=== PATIENT | male | born 1965 | race Asian ===

== ENCOUNTER 2019-07-23 14:05 | Inpatient (IN) | payer BC, OTHER ==
[2019-07-23 15:11] VITALS: BMI 30.9
[2019-07-23 15:58] LABS: Actual Bicarbonate (HCO3a) 26.6 mEq/L (22-28); Base Excess (BEa) 2.3 mEq/L (-2.0 to +3.0); CO2 Tension 40.1 mmHg (35.0-45.0); Calcium, Ionized 1.02 mmol/L (1.12-1.30); Carboxyhemoglobin (COHb) 1.4 gm% (0.0-3.0); Hemoglobin (Hb) 13.5 g/dL (14.0-18.0); O2 Tension (PaO2), arterial 68.2 mmHg (80.0-100.0); Potassium - ABG Lab 3.33 mmol/L (3.70-5.30); pH, Arterial 7.44 (7.35-7.45)
[2019-07-23 16:01] LABS: ALV-art Gradient 109.835 (0-20); Puncture Site RRA
[2019-07-23 16:33] LABS: CKMB 11.8 ng/mL (0-6.6)
[2019-07-23] MEDS ORDERED: hydrALAZINE 20 MG/ML VIAL SLOW IVP PRN (17:16)
[2019-07-23] MEDS ORDERED: Labetalol HCl 100 MG/20 ML VIAL SLOW IVP PRN (17:16)
[2019-07-23] MEDS ORDERED: Ondansetron ODT 4 MG TAB PO PRN (17:16)
[2019-07-23] MEDS ORDERED: Benzonatate 100 MG CAP PO PRN (17:16)
[2019-07-23] MEDS ORDERED: Acetaminophen 325 MG TAB PO PRN (17:16)
[2019-07-23] MEDS: cefTRIAXone\\ROCEPHIN 1 GM in Sodium Chloride 0.9% 100 ML IVPB SCH (17:57)
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
[2019-07-23] MEDS ORDERED: Mometasone 100 MCG/Formoterol 5 MCG 120 PUFF INHALER INH SCH (18:30)
[2019-07-23] MEDS: Azithromycin 500 MG in Sodium Chloride 0.9% 250 ML 250 ML IVPB SCH (18:42)
[2019-07-23] MEDS: Albuterol 200 PUFF (6.7GM INHALER) INH SCH (18:43)
[2019-07-23] MEDS: Mometasone 100 MCG/Formoterol 5 MCG 120 PUFF INHALER INH SCH (18:58)
[2019-07-23 19:28] LABS: Troponin I 0.146 ng/mL (< 0.028)
[2019-07-23] MEDS: Famotidine 20 MG TAB PO SCH (20:21)
[2019-07-23] MEDS: Enoxaparin Sodium 100 MG/ML SYRINGE SC SCH (20:21)
[2019-07-23 21:37] LABS: Troponin I 0.123 ng/mL (< 0.028)
[2019-07-23] MEDS ORDERED: guaiFENesin ER 600 MG TAB PO SCH (23:45)
[2019-07-24] MEDS: Albuterol 200 PUFF (6.7GM INHALER) INH SCH ×4 (01:46→17:47)
[2019-07-24 05:59] LABS: Hemoglobin 12.7 g/dL (14.0-18.0); Mean Corpuscular HGB CONC 32.1 g/dL (32.0-36.0); Mean Corpuscular Hemoglobin 29.8 pg (27.0-31.0); Mean Corpuscular Volume 92.9 fL (78.0-98.0); Mean Platelet Volume 8.3 fL (7.4-10.4); Platelet Count 286 thou/uL (130-400); RBC Distribution Width 12.8 % (11.5-14.5); Red Blood Cell (RBC) Count 4.25 mill/uL (4.70-6.10); White Blood Cell (WBC) Count 7.9 thou/uL (4.8-10.8)
[2019-07-24] MEDS: Mometasone 100 MCG/Formoterol 5 MCG 120 PUFF INHALER INH SCH ×2 (05:59→17:47)
[2019-07-24 06:16] LABS: Anion Gap 12 mmol/L (10-20); BUN (Urea Nitrogen) 24 mg/dL (8.4-25.7); CRP (Inflammatory) 11.33 mg/dL (= or < 0.5); Calc. Creatinine Clearance 129 mL/min (70-130); Calcium 7.5 mg/dL (7.8-10.44); Carbon Dioxide 29 mmol/L (22-29); Chloride 103 mmol/L (98-107); Estimated GFR-MDRD Greater than 90; Glucose 148 mg/dL (70-105); Potassium 3.4 mmol/L (3.5-5.1); Sodium 141 mmol/L (136-145)
[2019-07-24 06:23] LABS: Band 12 % (5-11); Lymphocytes 5 % (21-51); MDiff Complete? YES; Metamyelocyte 1 % (0-0); Monocytes 4 % (0-10); Neutrophil 78 % (42-75)
[2019-07-24] MEDS: Enoxaparin Sodium 100 MG/ML SYRINGE SC SCH ×2 (07:53→19:33)
[2019-07-24] MEDS: Folic Acid/Vit B Comp W-C PO SCH (07:56)
[2019-07-24] MEDS: Famotidine 20 MG TAB PO SCH ×2 (07:56→19:33)
[2019-07-24] MEDS: Aspirin 81 mg Enteric Coated Tablet PO SCH (07:56)
[2019-07-24] MEDS: Atorvastatin Calcium 40 MG TAB PO SCH (07:56)
[2019-07-24] MEDS: Ascorbic Acid 500 mg Chewable Tablet PO SCH (07:56)
[2019-07-24] MEDS: guaiFENesin ER 600 MG TAB PO SCH ×2 (07:57→19:33)
[2019-07-24] MEDS ORDERED: Prevnar 13-Val Conj/PF 0.5 ML SYRINGE IM ONE (09:00)
[2019-07-24 10:20] LABS: SARS-CoV-2 MS2 Positive; SARS-CoV-2 N Gene Positive; SARS-CoV-2 S Gene Positive; SARS-CoV-2 orf1ab Positive
--- NOTE | 2019-07-24 12:29 | PDOC.HOSPP ---
- Subjective Encounter Date: 07/24/19 Encounter Time: 12:27 Subjective: Mr. Kincaid was seen today in follow-up of COVID positive pneumonia. He does not have any complaints. He is wondering when he can go home. - Objective Vital Signs & Weight: Vital Signs (12 hours) Temp Pulse Resp BP Pulse Ox 07/24/19 08:00 97.3 F L 73 24 H 112/71 97 07/24/19 03:27 97.8 F 77 34 H 130/78 95 Weight Weight 197 lb 6.4 oz I&O: 07/23/19 07/24/19 07/25/19 06:59 06:59 06:59 Intake Total 780 Balance 780 Result Diagrams: 07/24/19 05:07 07/24/19 05:07 Hospitalist ROS - Medication Medications: Active Medications Generic Name Dose Route Start Last Admin Trade Name Freq PRN Reason Stop Dose Admin Albuterol Sulfate 2 puff 07/23/19 19:00 07/24/19 07:57 Proventil Hfa INH 2 puff [id number] MARLYS Administration Ascorbic Acid 1,000 mg 07/24/19 09:00 07/24/19 07:56 Vitamin C PO 1,000 mg DAILY MARLYS Administration Aspirin 81 mg 07/24/19 09:00 07/24/19 07:56 Ecotrin PO 81 mg DAILY MARLYS Administration Atorvastatin Calcium 40 mg 07/24/19 09:00 07/24/19 07:56 Lipitor PO 40 mg DAILY MARLYS Administration Enoxaparin Sodium 90 mg 07/23/19 21:00 07/24/19 07:53 Lovenox SC 90 mg 0900,2100 MARLYS Administration Famotidine 20 mg 07/23/19 21:00 07/24/19 07:56 Pepcid PO 20 mg BID MARLYS Administration Guaifenesin 600 mg 07/24/19 09:00 07/24/19 07:57 Mucinex PO 600 mg Q12HR MARLYS Administration Azithromycin 500 mg/ Sodium 250 mls @ 250 mls/hr 07/23/19 18:30 07/23/19 18: 42 Chloride IVPB 250 mls Q24HR MARLYS Administration Ceftriaxone Sodium 1 gm/ 100 mls @ 200 mls/hr 07/23/19 18:00 07/23/19 17:57 Sodium Chloride IVPB 100 mls Q24HR MARLYS Administration Mometasone Furoate/Formoterol Fumar 1 puff 07/23/19 18:30 07/24/19 05:59 Dulera 100 Mcg/5 Mcg Inhaler INH 1 puff BID-RT MARLYS Administration Vitamin B Complex/Vit C/Folic Acid 1 tab 07/24/19 09:00 07/24/19 07:56 Nephro-Samina Tablet PO 1 tab DAILY MARLYS Administration - Exam Eye: PERRL, anicteric sclera Heart: RRR, no murmur, no gallops, no rubs, normal peripheral pulses Respiratory: rales (+ fine rales bilaterally, no wheezing or rhonchi) Gastrointestinal: soft, non-tender, non-distended, normal bowel sounds, no palpable masses, no hepatomegaly Extremities: no cyanosis, no edema Hosp A/P (1) Pneumonia due to COVID-19 virus Code(s): U07.1 - COVID-19; J12.89 - OTHER VIRAL PNEUMONIA Status: Acute (2) Acute on chronic respiratory failure with hypoxemia Code(s): J96.21 - ACUTE AND CHRONIC RESPIRATORY FAILURE WITH HYPOXIA Status: Acute (3) Asthma Code(s): J45.909 - UNSPECIFIED ASTHMA, UNCOMPLICATED Status: Chronic (4) Hypertension Code(s): I10 - ESSENTIAL (PRIMARY) HYPERTENSION Status: Chronic - Plan * Acute on chronic respiratory failure with hypoxemia- due to COVID positive pneumonia * Continue supportive care * Will monitor inflammatory markers * Will place on anticoagulation * HTN-blood pressure is stable- and will re-start his home medications
[2019-07-24] MEDS: cefTRIAXone\\ROCEPHIN 1 GM in Sodium Chloride 0.9% 100 ML IVPB SCH (17:48)
[2019-07-24] MEDS: Azithromycin 500 MG in Sodium Chloride 0.9% 250 ML 250 ML IVPB SCH (18:35)
[2019-07-24] MEDS: Metoprolol Tartrate 100 MG TAB PO SCH (19:33)
[2019-07-24] MEDS ORDERED: Metoprolol Tartrate 50 MG TAB PO SCH (21:00)
[2019-07-25] MEDS: Albuterol 200 PUFF (6.7GM INHALER) INH SCH ×4 (00:32→21:05)
[2019-07-25] MEDS: Mometasone 100 MCG/Formoterol 5 MCG 120 PUFF INHALER INH SCH ×2 (06:19→18:09)
[2019-07-25] MEDS: Ascorbic Acid 500 mg Chewable Tablet PO SCH (08:49)
[2019-07-25] MEDS: Folic Acid/Vit B Comp W-C PO SCH (08:50)
[2019-07-25] MEDS: Famotidine 20 MG TAB PO SCH ×2 (08:50→21:06)
[2019-07-25] MEDS: Atorvastatin Calcium 40 MG TAB PO SCH (08:50)
[2019-07-25] MEDS: Aspirin 81 mg Enteric Coated Tablet PO SCH (08:50)
[2019-07-25] MEDS: Enoxaparin Sodium 100 MG/ML SYRINGE SC SCH ×2 (08:50→21:06)
[2019-07-25] MEDS: Metoprolol Tartrate 50 MG TAB PO SCH (08:51)
[2019-07-25] MEDS: guaiFENesin ER 600 MG TAB PO SCH ×2 (08:51→21:06)
[2019-07-25] MEDS: Montelukast Sodium 10 mg Tablet PO SCH (08:51)
[2019-07-25] MEDS: Hydrochlorothiazide 25 MG TAB PO SCH (08:51)
[2019-07-25] MEDS: Valsartan 80 MG TAB PO SCH (08:51)
[2019-07-25] MEDS ORDERED: Metoprolol Tartrate 50 MG TAB PO SCH (09:00)
[2019-07-25] MEDS ORDERED: Non-Formulary Item 1 EACH (Valsartan/Hydrochlorothiazide [Valsartan-Hctz 160-25 Mg Tab] 1 PO SCH (09:00)
--- NOTE | 2019-07-25 12:42 | PDOC.HOSPP ---
- Subjective Encounter Date: 07/25/19 Encounter Time: 12:39 Subjective: Mr. Kincaid was seen today in follow-up of COVID pneumonia. He does not have any complaints. His nurse notes he has high oxygen requirements, and that he desaturates to 70% when the oxygen is removed. - Objective Vital Signs & Weight: Vital Signs (12 hours) Temp Pulse Resp BP Pulse Ox 07/25/19 12:00 100.4 F H 81 22 H 128/73 93 L 07/25/19 03:55 98.6 F 77 26 H 119/62 94 L Weight Admit Weight 197 lb 6.4 oz Weight 197 lb 6.4 oz I&O: 07/24/19 07/25/19 07/26/19 06:59 06:59 06:59 Intake Total 780 1838 Output Total 600 Balance 780 1238 Result Diagrams: 07/24/19 05:07 07/24/19 05:07 Hospitalist ROS - Medication Medications: Active Medications Generic Name Dose Route Start Last Admin Trade Name Freq PRN Reason Stop Dose Admin Albuterol Sulfate 2 puff 07/23/19 19:00 07/25/19 06:19 Proventil Hfa INH 2 puff [id number] MARLYS Administration Ascorbic Acid 1,000 mg 07/24/19 09:00 07/25/19 08:49 Vitamin C PO 1,000 mg DAILY MARLYS Administration Aspirin 81 mg 07/24/19 09:00 07/25/19 08:50 Ecotrin PO 81 mg DAILY MARLYS Administration Atorvastatin Calcium 40 mg 07/24/19 09:00 07/25/19 08:50 Lipitor PO 40 mg DAILY MARLYS Administration Enoxaparin Sodium 90 mg 07/23/19 21:00 07/25/19 08:50 Lovenox SC 90 mg 0900,2100 MARLYS Administration Famotidine 20 mg 07/23/19 21:00 07/25/19 08:50 Pepcid PO 20 mg BID MARLYS Administration Guaifenesin 600 mg 07/24/19 09:00 07/25/19 08:51 Mucinex PO 600 mg Q12HR MARLYS Administration Hydrochlorothiazide 25 mg 07/25/19 09:00 07/25/19 08:51 Hydrochlorothiazide PO 25 mg DAILY MARLYS Administration Azithromycin 500 mg/ Sodium 250 mls @ 250 mls/hr 07/23/19 18:30 07/24/19 18: 35 Chloride IVPB 250 mls Q24HR MARLYS Administration Ceftriaxone Sodium 1 gm/ 100 mls @ 200 mls/hr 07/23/19 18:00 07/24/19 17:48 Sodium Chloride IVPB 100 mls Q24HR MARLYS Administration Metoprolol Tartrate 100 mg 07/24/19 21:00 07/24/19 19:33 Lopressor PO 100 mg HS MARLYS Administration Metoprolol Tartrate 50 mg 07/25/19 09:00 07/25/19 08:51 Lopressor PO 50 mg QAM MARLYS Administration Mometasone Furoate/Formoterol Fumar 1 puff 07/23/19 18:30 07/25/19 06:19 Dulera 100 Mcg/5 Mcg Inhaler INH 1 puff BID-RT MARLYS Administration Montelukast Sodium 10 mg 07/25/19 09:00 07/25/19 08:51 Singulair PO 10 mg DAILY MARLYS Administration Sodium Chloride 10 ml 07/24/19 21:00 07/25/19 08:52 Flush - Normal Saline IVF 10 ml Q12HR MARLYS Administration Valsartan 160 mg 07/25/19 09:00 07/25/19 08:51 Diovan PO 160 mg DAILY MARLYS Administration Vitamin B Complex/Vit C/Folic Acid 1 tab 07/24/19 09:00 07/25/19 08:50 Nephro-Samina Tablet PO 1 tab DAILY MARLYS Administration - Exam Eye: PERRL, anicteric sclera Heart: RRR, no murmur, no gallops, no rubs, normal peripheral pulses Respiratory: no wheezes, rales (throughout most of his lung flores, bilaterally) Gastrointestinal: soft, non-tender, non-distended, normal bowel sounds, no palpable masses, no hepatomegaly Extremities: no cyanosis, no edema Hosp A/P (1) Pneumonia due to COVID-19 virus Code(s): U07.1 - COVID-19; J12.89 - OTHER VIRAL PNEUMONIA Status: Acute (2) Acute on chronic respiratory failure with hypoxemia Code(s): J96.21 - ACUTE AND CHRONIC RESPIRATORY FAILURE WITH HYPOXIA Status: Acute (3) Asthma Code(s): J45.909 - UNSPECIFIED ASTHMA, UNCOMPLICATED Status: Chronic (4) Hypertension Code(s): I10 - ESSENTIAL (PRIMARY) HYPERTENSION Status: Chronic - Plan * Acute on chronic respiratory failure with hypoxemia- due to COVID positive pneumonia * Will continue to monitor in the hospital * His troponins are trending down * Continue Lovenox * HTN-blood pressure is stable- continue Losartan and Metoprolol
[2019-07-25] MEDS: cefTRIAXone\\ROCEPHIN 1 GM in Sodium Chloride 0.9% 100 ML IVPB SCH (17:45)
[2019-07-25] MEDS: Azithromycin 500 MG in Sodium Chloride 0.9% 250 ML 250 ML IVPB SCH (18:09)
[2019-07-25] MEDS: Metoprolol Tartrate 100 MG TAB PO SCH (21:06)
[2019-07-26] MEDS: Albuterol 200 PUFF (6.7GM INHALER) INH SCH ×4 (00:39→19:02)
[2019-07-26 01:10] LABS: Actual Bicarbonate (HCO3a) 31.2 mEq/L (22-28); Base Excess (BEa) 6.5 mEq/L (-2.0 to +3.0); CO2 Tension 45.1 mmHg (35.0-45.0); Calcium, Ionized 1.07 mmol/L (1.12-1.30); Carboxyhemoglobin (COHb) 0.9 gm% (0.0-3.0); Hemoglobin (Hb) 13.2 g/dL (14.0-18.0); O2 Tension (PaO2), arterial 80.1 mmHg (80.0-100.0); Potassium - ABG Lab 3.34 mmol/L (3.70-5.30); pH, Arterial 7.46 (7.35-7.45)
[2019-07-26 01:11] LABS: Puncture Site L RADIAL
[2019-07-26 01:12] LABS: ALV-art Gradient 148.725 (0-20)
[2019-07-26] MEDS: Mometasone 100 MCG/Formoterol 5 MCG 120 PUFF INHALER INH SCH ×2 (06:07→19:02)
--- NOTE | 2019-07-26 07:54 | RAD ---
EXAM: CHEST ONE VIEW HISTORY: Chronic cough COMPARISON: 11/27/2015. FINDINGS: Cardiac silhouette is magnified by projection but does appear mildly enlarged interstitial and alveol ar opacities are seen within the lungs bilaterally and diffusely with more confluent areas of consolidation seen at the lateral aspect of the upper lung zones. Findings are suggestive of bilatera l pneumonia and possibly atypical pneumonia. Viral pneumonitis in the correct clinical scenario is a possibility. Mild degenerative changes are seen in the spine. IMPRESSION: Bilateral interstitial and alveolar opacities with more confluent opacity/consolidation in the latera l aspect upper lung zones. Findings may be related to multifocal pneumonia and possibly atypical pneumonia. Viral pneumonitis in the correct clinical scenario is also a possibility. Follow-up to com plete resolution is recommended.
[2019-07-26] MEDS: Atorvastatin Calcium 40 MG TAB PO SCH (08:04)
[2019-07-26] MEDS: Enoxaparin Sodium 100 MG/ML SYRINGE SC SCH ×2 (08:04→20:45)
[2019-07-26] MEDS: Ascorbic Acid 500 mg Chewable Tablet PO SCH (08:04)
[2019-07-26] MEDS: Aspirin 81 mg Enteric Coated Tablet PO SCH (08:04)
[2019-07-26] MEDS: Folic Acid/Vit B Comp W-C PO SCH (08:05)
[2019-07-26] MEDS: Famotidine 20 MG TAB PO SCH ×2 (08:05→20:47)
[2019-07-26] MEDS: Metoprolol Tartrate 50 MG TAB PO SCH (08:05)
[2019-07-26] MEDS: Hydrochlorothiazide 25 MG TAB PO SCH (08:05)
[2019-07-26] MEDS: Montelukast Sodium 10 mg Tablet PO SCH (08:05)
[2019-07-26] MEDS: guaiFENesin ER 600 MG TAB PO SCH ×2 (08:05→20:47)
[2019-07-26] MEDS: Valsartan 80 MG TAB PO SCH (08:06)
[2019-07-26 12:14] LABS: ALT (SGPT) 64 U/L (8-55); AST (SGOT) 59 U/L (5-34); Albumin 3.1 g/dL (3.5-5.0); Alkaline Phosphatase 68 U/L (40-110); Bilirubin, Direct 0.4 mg/dL (0.1-0.3); Bilirubin, Total 0.8 mg/dL (0.2-1.2); Protein, Total 7.4 g/dL (6.0-8.3)
[2019-07-26 12:19] LABS: Calc. Creatinine Clearance 145 mL/min (70-130); Estimated GFR-MDRD Greater than 90
[2019-07-26] MEDS ORDERED: Non-Formulary Item 1 EACH in Sodium Chloride 0.9% 250 ML 210 ML IV SCH ×2 (12:45→14:00)
--- NOTE | 2019-07-26 12:45 | PDOC.HOSPP ---
- Subjective Encounter Date: 07/26/19 Encounter Time: 12:44 Subjective: Mr. Kincaid was seen today in follow-up of COVID pneumonia. He had some difficulty with increase work of breathing last night. He says he feels ok now, but he appears more diaphoretic and slightly tachypneic. - Objective Vital Signs & Weight: Vital Signs (12 hours) Temp Pulse Resp BP Pulse Ox 07/26/19 11:50 98.9 F 70 36 H 134/74 96 07/26/19 08:10 98.1 F 79 36 H 139/79 93 L 07/26/19 04:24 98.9 F 62 28 H 134/80 95 Weight Admit Weight 197 lb 6.4 oz Weight 193 lb 12.8 oz I&O: 07/25/19 07/26/19 07/27/19 06:59 06:59 06:59 Intake Total 1838 1445 480 Output Total 600 600 400 Balance 1238 845 80 Result Diagrams: 07/24/19 05:07 07/26/19 11:39 Hospitalist ROS - Medication Medications: Active Medications Generic Name Dose Route Start Last Admin Trade Name Freq PRN Reason Stop Dose Admin Acetaminophen 650 mg 07/23/19 17:16 07/26/19 00:42 Tylenol PO 650 mg Q4H PRN Administration Headache/Fever/Mild Pain (1-3) Albuterol Sulfate 2 puff 07/23/19 19:00 07/26/19 06:06 Proventil Hfa INH 2 puff [id number] MARLYS Administration Ascorbic Acid 1,000 mg 07/24/19 09:00 07/26/19 08:04 Vitamin C PO 1,000 mg DAILY MARLYS Administration Aspirin 81 mg 07/24/19 09:00 07/26/19 08:04 Ecotrin PO 81 mg DAILY MARLYS Administration Atorvastatin Calcium 40 mg 07/24/19 09:00 07/26/19 08:04 Lipitor PO 40 mg DAILY MARLYS Administration Enoxaparin Sodium 90 mg 07/23/19 21:00 07/26/19 08:04 Lovenox SC 90 mg 0900,2100 MARLYS Administration Famotidine 20 mg 07/23/19 21:00 07/26/19 08:05 Pepcid PO 20 mg BID MARLYS Administration Guaifenesin 600 mg 07/24/19 09:00 07/26/19 08:05 Mucinex PO 600 mg Q12HR MARLYS Administration Hydrochlorothiazide 25 mg 07/25/19 09:00 07/26/19 08:05 Hydrochlorothiazide PO 25 mg DAILY MARLYS Administration Metoprolol Tartrate 100 mg 07/24/19 21:00 07/25/19 21:06 Lopressor PO 100 mg HS MARLYS Administration Metoprolol Tartrate 50 mg 07/25/19 09:00 07/26/19 08:05 Lopressor PO 50 mg QAM MARLYS Administration Mometasone Furoate/Formoterol Fumar 1 puff 07/23/19 18:30 07/26/19 06:07 Dulera 100 Mcg/5 Mcg Inhaler INH 1 puff BID-RT MARLYS Administration Montelukast Sodium 10 mg 07/25/19 09:00 07/26/19 08:05 Singulair PO 10 mg DAILY MARLYS Administration Sodium Chloride 10 ml 07/24/19 21:00 07/26/19 08:05 Flush - Normal Saline IVF 10 ml Q12HR MARLYS Administration Sodium Chloride 10 ml 07/24/19 12:37 07/25/19 17:45 Flush - Normal Saline IVF 10 ml PRN PRN Administration Saline Flush Valsartan 160 mg 07/25/19 09:00 07/26/19 08:06 Diovan PO 160 mg DAILY MARLYS Administration Vitamin B Complex/Vit C/Folic Acid 1 tab 07/24/19 09:00 07/26/19 08:05 Nephro-Samina Tablet PO 1 tab DAILY MARLYS Administration - Exam Eye: PERRL, anicteric sclera Heart: RRR, no murmur, no gallops, no rubs, normal peripheral pulses Respiratory: rales (rales throughout, and occasional rhonchi) Gastrointestinal: soft, non-tender, non-distended, normal bowel sounds, no palpable masses, no hepatomegaly Extremities: no cyanosis, no edema Hosp A/P (1) Pneumonia due to COVID-19 virus Code(s): U07.1 - COVID-19; J12.89 - OTHER VIRAL PNEUMONIA Status: Acute (2) Acute on chronic respiratory failure with hypoxemia Code(s): J96.21 - ACUTE AND CHRONIC RESPIRATORY FAILURE WITH HYPOXIA Status: Acute (3) Asthma Code(s): J45.909 - UNSPECIFIED ASTHMA, UNCOMPLICATED Status: Chronic (4) Hypertension Code(s): I10 - ESSENTIAL (PRIMARY) HYPERTENSION Status: Chronic - Plan * Acute on chronic respiratory failure with hypoxemia- due to COVID positive pneumonia * He has had some increase work of breathing. Agree with ID consult * He is being considered for Remdesivir protocol, lab work, and work-up is in progress * Continue to monitor inflammatory markers * Continue Lovenox * HTN-blood pressure is stable- continue Losartan and Metoprolol
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
[2019-07-26] MEDS: Metoprolol Tartrate 100 MG TAB PO SCH (20:47)
[2019-07-27] MEDS: Albuterol 200 PUFF (6.7GM INHALER) INH SCH ×4 (01:19→17:50)
[2019-07-27 05:09] LABS: Hemoglobin 13.2 g/dL (14.0-18.0); Platelet Count 377 thou/uL (130-400)
[2019-07-27 05:31] LABS: Calc. Creatinine Clearance 157 mL/min (70-130); Estimated GFR-MDRD Greater than 90
[2019-07-27 05:35] LABS: ALT (SGPT) 66 U/L (8-55); AST (SGOT) 54 U/L (5-34); Albumin 2.9 g/dL (3.5-5.0); Alkaline Phosphatase 64 U/L (40-110); Bilirubin, Direct 0.5 mg/dL (0.1-0.3); Bilirubin, Total 0.8 mg/dL (0.2-1.2); Protein, Total 6.9 g/dL (6.0-8.3)
[2019-07-27] MEDS: Mometasone 100 MCG/Formoterol 5 MCG 120 PUFF INHALER INH SCH ×2 (05:48→17:48)
[2019-07-27] MEDS: Aspirin 81 mg Enteric Coated Tablet PO SCH (08:20)
[2019-07-27] MEDS: Ascorbic Acid 500 mg Chewable Tablet PO SCH (08:20)
[2019-07-27] MEDS: guaiFENesin ER 600 MG TAB PO SCH ×2 (08:21→19:53)
[2019-07-27] MEDS: Enoxaparin Sodium 100 MG/ML SYRINGE SC SCH ×2 (08:21→20:18)
[2019-07-27] MEDS: Famotidine 20 MG TAB PO SCH ×2 (08:21→19:53)
[2019-07-27] MEDS: Atorvastatin Calcium 40 MG TAB PO SCH (08:21)
[2019-07-27] MEDS: Folic Acid/Vit B Comp W-C PO SCH (08:21)
[2019-07-27] MEDS: Valsartan 80 MG TAB PO SCH (08:22)
[2019-07-27] MEDS: Metoprolol Tartrate 50 MG TAB PO SCH (08:22)
[2019-07-27] MEDS: Montelukast Sodium 10 mg Tablet PO SCH (08:22)
[2019-07-27] MEDS: Hydrochlorothiazide 25 MG TAB PO SCH (08:22)
--- NOTE | 2019-07-27 11:25 | PDOC.HOSPP ---
- Subjective Encounter Date: 07/27/19 Encounter Time: 11:24 Subjective: Mr. Kincaid was seen today in follow-up of COVID positive pneumonia. He says he is breathing ok. He denies chest pain or shortness of breath. He denies any leg pain or swelling. - Objective Vital Signs & Weight: Vital Signs (12 hours) Temp Pulse Resp BP BP Pulse Ox 07/27/19 08:30 98.2 F 77 20 128/72 96 07/27/19 05:50 99.1 F 64 27 H 131/76 93 L 07/27/19 00:50 99.3 F 63 28 H 124/68 96 Weight Admit Weight 197 lb 6.4 oz Weight 193 lb 12.8 oz I&O: 07/26/19 07/27/19 07/28/19 06:59 06:59 06:59 Intake Total 1445 720 Output Total 600 1300 Balance 845 -580 Result Diagrams: 07/27/19 04:41 07/27/19 04:42 Hospitalist ROS - Medication Medications: Active Medications Generic Name Dose Route Start Last Admin Trade Name Freq PRN Reason Stop Dose Admin Acetaminophen 650 mg 07/23/19 17:16 07/26/19 00:42 Tylenol PO 650 mg Q4H PRN Administration Headache/Fever/Mild Pain (1-3) Albuterol Sulfate 2 puff 07/23/19 19:00 07/27/19 08:20 Proventil Hfa INH 2 puff [id number] MARLYS Administration Ascorbic Acid 1,000 mg 07/24/19 09:00 07/27/19 08:20 Vitamin C PO 1,000 mg DAILY MARLYS Administration Aspirin 81 mg 07/24/19 09:00 07/27/19 08:20 Ecotrin PO 81 mg DAILY MARLYS Administration Atorvastatin Calcium 40 mg 07/24/19 09:00 07/27/19 08:21 Lipitor PO 40 mg DAILY MARLYS Administration Enoxaparin Sodium 90 mg 07/23/19 21:00 07/27/19 08:21 Lovenox SC 90 mg 0900,2100 MARLYS Administration Famotidine 20 mg 07/23/19 21:00 07/27/19 08:21 Pepcid PO 20 mg BID MARLYS Administration Guaifenesin 600 mg 07/24/19 09:00 07/27/19 08:21 Mucinex PO 600 mg Q12HR MARLYS Administration Hydrochlorothiazide 25 mg 07/25/19 09:00 07/27/19 08:22 Hydrochlorothiazide PO 25 mg DAILY MARLYS Administration Metoprolol Tartrate 100 mg 07/24/19 21:00 07/26/19 20:47 Lopressor PO 100 mg HS MARLYS Administration Metoprolol Tartrate 50 mg 07/25/19 09:00 07/27/19 08:22 Lopressor PO 50 mg QAM MARLYS Administration Mometasone Furoate/Formoterol Fumar 1 puff 07/23/19 18:30 07/27/19 05:48 Dulera 100 Mcg/5 Mcg Inhaler INH 1 puff BID-RT MARLYS Administration Montelukast Sodium 10 mg 07/25/19 09:00 07/27/19 08:22 Singulair PO 10 mg DAILY MARLYS Administration Sodium Chloride 10 ml 07/24/19 21:00 07/27/19 08:23 Flush - Normal Saline IVF 10 ml Q12HR MARLYS Administration Sodium Chloride 10 ml 07/24/19 12:37 07/25/19 17:45 Flush - Normal Saline IVF 10 ml PRN PRN Administration Saline Flush Valsartan 160 mg 07/25/19 09:00 07/27/19 08:22 Diovan PO 160 mg DAILY MARLYS Administration Vitamin B Complex/Vit C/Folic Acid 1 tab 07/24/19 09:00 07/27/19 08:21 Nephro-Samina Tablet PO 1 tab DAILY MARLYS Administration - Exam Eye: PERRL, anicteric sclera Heart: RRR, no murmur, no gallops, no rubs, normal peripheral pulses Gastrointestinal: soft, non-tender, non-distended, normal bowel sounds Extremities: no cyanosis, no edema Hosp A/P (1) Pneumonia due to COVID-19 virus Code(s): U07.1 - COVID-19; J12.89 - OTHER VIRAL PNEUMONIA Status: Acute (2) Acute on chronic respiratory failure with hypoxemia Code(s): J96.21 - ACUTE AND CHRONIC RESPIRATORY FAILURE WITH HYPOXIA Status: Acute (3) Asthma Code(s): J45.909 - UNSPECIFIED ASTHMA, UNCOMPLICATED Status: Chronic (4) Hypertension Code(s): I10 - ESSENTIAL (PRIMARY) HYPERTENSION Status: Chronic - Plan * Acute on chronic respiratory failure with hypoxemia- due to COVID positive pneumonia * He has been started on Remdesivir * Continue to monitor inflammatory markers * Continue Lovenox * HTN-blood pressure is stable- continue Losartan and Metoprolol
[2019-07-27] MEDS: Non-Formulary Item 1 EACH in Sodium Chloride 0.9% 250 ML 230 ML IV SCH (12:36)
--- NOTE | 2019-07-27 19:13 | PRG ---
DATE OF SERVICE: 07/27/2019 SUBJECTIVE: The patient is feeling better. He is not dyspneic. Less cough. No abdominal pain or diarrhea. No anosmia. OBJECTIVE: VITAL SIGNS: It looks like his temperature curve is normalizing. Other vital signs are normal. O2 saturations are 97 on 5 L of nasal cannula. LUNGS: Clear. HEART: S1 and S2, regular rate. ABDOMEN: Soft. Not distended. LABORATORY DATA: Hemoglobin 13, platelets 377. The direct bilirubin is 0.5. AST and ALT are about the same as previously. Albumin 2.9. Ferritin is a little bit higher at 461, and CRP is lower than the last one at 14. ASSESSMENT AND DISCUSSION: COVID pneumonia, moderately severe, on remdesivir. Continue monitoring ferritin, CRP, and D-dimer every other day and hopefully will be able to discharge soon. Criteria for discharge will be lack of requirement for O2 supplementation and continuing improvement of inflammatory markers and D-dimer. Job ID: [id number]
[2019-07-27] MEDS: Metoprolol Tartrate 100 MG TAB PO SCH (19:53)
[2019-07-28] MEDS: Albuterol 200 PUFF (6.7GM INHALER) INH SCH ×4 (01:55→19:44)
[2019-07-28 05:30] LABS: ALT (SGPT) 70 U/L (8-55); AST (SGOT) 53 U/L (5-34); Alkaline Phosphatase 68 U/L (40-110); Bilirubin, Direct 0.4 mg/dL (0.1-0.3); Bilirubin, Total 0.5 mg/dL (0.2-1.2); Protein, Total 7.2 g/dL (6.0-8.3)
[2019-07-28] MEDS: Mometasone 100 MCG/Formoterol 5 MCG 120 PUFF INHALER INH SCH ×2 (06:04→17:35)
[2019-07-28] MEDS: Enoxaparin Sodium 100 MG/ML SYRINGE SC SCH ×2 (07:59→19:43)
[2019-07-28] MEDS: Aspirin 81 mg Enteric Coated Tablet PO SCH (07:59)
[2019-07-28] MEDS: Valsartan 80 MG TAB PO SCH (08:00)
[2019-07-28] MEDS: Hydrochlorothiazide 25 MG TAB PO SCH (08:00)
[2019-07-28] MEDS: Metoprolol Tartrate 50 MG TAB PO SCH (08:00)
[2019-07-28] MEDS: Famotidine 20 MG TAB PO SCH ×2 (08:00→19:44)
[2019-07-28] MEDS: Atorvastatin Calcium 40 MG TAB PO SCH (08:00)
[2019-07-28] MEDS: Folic Acid/Vit B Comp W-C PO SCH (08:00)
[2019-07-28] MEDS: Ascorbic Acid 500 mg Chewable Tablet PO SCH (08:00)
[2019-07-28] MEDS: Montelukast Sodium 10 mg Tablet PO SCH (08:01)
[2019-07-28] MEDS: guaiFENesin ER 600 MG TAB PO SCH ×2 (08:01→19:44)
--- NOTE | 2019-07-28 10:35 | PDOC.HOSPP ---
- Subjective Encounter Date: 07/28/19 - Objective Vital Signs & Weight: Vital Signs (12 hours) Temp Pulse Resp BP BP Pulse Ox 07/28/19 08:45 99.3 F 80 26 H 115/68 92 L 07/28/19 05:40 99.1 F 61 28 H 118/68 93 L 07/28/19 01:28 98.3 F 62 28 H 126/65 96 Weight Admit Weight 197 lb 6.4 oz Weight 193 lb 12.8 oz I&O: 07/27/19 07/28/19 07/29/19 06:59 06:59 06:59 Intake Total 720 1090 Output Total 1300 1575 Balance -580 -485 Result Diagrams: 07/27/19 04:41 07/27/19 04:42 Hospitalist ROS - Review of Systems Constitutional: reports: fever Respiratory: denies: shortness of breath Cardiovascular: denies: chest pain - Medication Medications: Active Medications Generic Name Dose Route Start Last Admin Trade Name Freq PRN Reason Stop Dose Admin Acetaminophen 650 mg 07/23/19 17:16 07/26/19 00:42 Tylenol PO 650 mg Q4H PRN Administration Headache/Fever/Mild Pain (1-3) Albuterol Sulfate 2 puff 07/23/19 19:00 07/28/19 08:01 Proventil Hfa INH 2 puff [id number] MARLYS Administration Ascorbic Acid 1,000 mg 07/24/19 09:00 07/28/19 08:00 Vitamin C PO 1,000 mg DAILY MARLYS Administration Aspirin 81 mg 07/24/19 09:00 07/28/19 07:59 Ecotrin PO 81 mg DAILY MARLYS Administration Atorvastatin Calcium 40 mg 07/24/19 09:00 07/28/19 08:00 Lipitor PO 40 mg DAILY MARLYS Administration Enoxaparin Sodium 90 mg 07/23/19 21:00 07/28/19 07:59 Lovenox SC 90 mg 0900,2100 MARLYS Administration Famotidine 20 mg 07/23/19 21:00 07/28/19 08:00 Pepcid PO 20 mg BID MARLYS Administration Guaifenesin 600 mg 07/24/19 09:00 07/28/19 08:01 Mucinex PO 600 mg Q12HR MARLYS Administration Hydrochlorothiazide 25 mg 07/25/19 09:00 07/28/19 08:00 Hydrochlorothiazide PO 25 mg DAILY MARLYS Administration Non-Formulary Medication 1 250 mls @ 250 mls/hr 07/27/19 13:00 07/27/19 12:36 each/ Sodium Chloride IV 07/30/19 13:59 250 mls 1300 MARLYS Administration Metoprolol Tartrate 100 mg 07/24/19 21:00 07/27/19 19:53 Lopressor PO 100 mg HS MARLYS Administration Metoprolol Tartrate 50 mg 07/25/19 09:00 07/28/19 08:00 Lopressor PO 50 mg QAM MARLYS Administration Mometasone Furoate/Formoterol Fumar 1 puff 07/23/19 18:30 07/28/19 06:04 Dulera 100 Mcg/5 Mcg Inhaler INH 1 puff BID-RT MARLYS Administration Montelukast Sodium 10 mg 07/25/19 09:00 07/28/19 08:01 Singulair PO 10 mg DAILY MARLYS Administration Sodium Chloride 10 ml 07/24/19 21:00 07/28/19 08:01 Flush - Normal Saline IVF 10 ml Q12HR MARLYS Administration Sodium Chloride 10 ml 07/24/19 12:37 07/25/19 17:45 Flush - Normal Saline IVF 10 ml PRN PRN Administration Saline Flush Valsartan 160 mg 07/25/19 09:00 07/28/19 08:00 Diovan PO 160 mg DAILY MARLYS Administration Vitamin B Complex/Vit C/Folic Acid 1 tab 07/24/19 09:00 07/28/19 08:00 Nephro-Samina Tablet PO 1 tab DAILY MARLYS Administration - Exam General Appearance: awake alert ENT: normocephalic atraumatic Neck: supple, no JVD Heart: RRR Respiratory: normal chest expansion, no tachypnea Extremities: no cyanosis, no clubbing Neurological: cranial nerve grossly intact, no focal deficits Hosp A/P - Plan (1) Pneumonia due to COVID-19 virus Code(s): U07.1 - COVID-19; J12.89 - OTHER VIRAL PNEUMONIA Status: Acute (2) Acute on chronic respiratory failure with hypoxemia Code(s): J96.21 - ACUTE AND CHRONIC RESPIRATORY FAILURE WITH HYPOXIA Status: Acute (3) Asthma Code(s): J45.909 - UNSPECIFIED ASTHMA, UNCOMPLICATED Status: Chronic (4) Hypertension Code(s): I10 - ESSENTIAL (PRIMARY) HYPERTENSION Status: Chronic - Plan * Acute on chronic respiratory failure with hypoxemia- due to COVID positive pneumonia * He has been started on Remdesivir * D-dimer levels and C-reactive protein are improving. The patient still requiring oxygen. ID following. * Continue Lovenox * HTN-blood pressure is stable- continue Losartan and Metoprolol
[2019-07-28] MEDS: Non-Formulary Item 1 EACH in Sodium Chloride 0.9% 250 ML 230 ML IV SCH (12:48)
--- NOTE | 2019-07-28 16:08 | PRG ---
DATE OF SERVICE: 07/28/2019 SUBJECTIVE: The patient is feeling better, less cough. No dyspnea. No chest pain. No abdominal pain. No diarrhea. No anosmia. OBJECTIVE: VITAL SIGNS: T-max 99.3, blood pressure 120/63, pulse 74, respirations of 24 to 26. O2 saturation was at 97 with 5 L; it is down to 4 L, now around 93% O2 sats. LUNGS: Fairly clear breath sounds. HEART: S1 and S2, regular rate. ABDOMEN: Soft, not distended or tender. No ascites. No bladder distention. LABORATORY DATA: White cell count 7.9, hemoglobin 12.7, and platelets 286. The D-dimer is down to 0.99 and transaminases are okay. Albumin 3.0. The ferritin is a little bit up to 537 and CRP is down to 7.46. ASSESSMENT AND DISCUSSION: COVID pneumonia, moderately severe. This is the third day on remdesivir, looks like he is improving steadily. We will see how he does in the next few days. Hopefully, will be able to be discharged soon. Job ID: [id number]
[2019-07-28] MEDS: Metoprolol Tartrate 100 MG TAB PO SCH (19:44)
[2019-07-29] MEDS: Albuterol 200 PUFF (6.7GM INHALER) INH SCH ×4 (00:36→17:32)
[2019-07-29 05:06] LABS: ALT (SGPT) 91 U/L (8-55); AST (SGOT) 84 U/L (5-34); Albumin 3.1 g/dL (3.5-5.0); Alkaline Phosphatase 70 U/L (40-110); Bilirubin, Direct 0.3 mg/dL (0.1-0.3); Bilirubin, Total 0.7 mg/dL (0.2-1.2); Protein, Total 7.5 g/dL (6.0-8.3)
[2019-07-29] MEDS: Mometasone 100 MCG/Formoterol 5 MCG 120 PUFF INHALER INH SCH ×2 (05:59→17:32)
[2019-07-29] MEDS: Enoxaparin Sodium 100 MG/ML SYRINGE SC SCH ×2 (08:17→22:21)
[2019-07-29] MEDS: Aspirin 81 mg Enteric Coated Tablet PO SCH (08:18)
[2019-07-29] MEDS: Hydrochlorothiazide 25 MG TAB PO SCH (08:18)
[2019-07-29] MEDS: Famotidine 20 MG TAB PO SCH ×2 (08:18→22:20)
[2019-07-29] MEDS: Folic Acid/Vit B Comp W-C PO SCH (08:18)
[2019-07-29] MEDS: Ascorbic Acid 500 mg Chewable Tablet PO SCH (08:19)
[2019-07-29] MEDS: Atorvastatin Calcium 40 MG TAB PO SCH (08:19)
[2019-07-29] MEDS: Montelukast Sodium 10 mg Tablet PO SCH (08:19)
[2019-07-29] MEDS: guaiFENesin ER 600 MG TAB PO SCH ×2 (08:19→22:21)
[2019-07-29] MEDS: Metoprolol Tartrate 50 MG TAB PO SCH (08:19)
[2019-07-29] MEDS: Valsartan 80 MG TAB PO SCH (08:19)
[2019-07-29] MEDS: Non-Formulary Item 1 EACH in Sodium Chloride 0.9% 250 ML 230 ML IV SCH (13:58)
--- NOTE | 2019-07-29 14:00 | PDOC.HOSPP ---
- Subjective Encounter Date: 07/29/19 - Objective Vital Signs & Weight: Vital Signs (12 hours) Temp Pulse Resp BP BP Pulse Ox 07/29/19 12:00 98.3 F 74 18 106/60 94 L 07/29/19 08:00 98.8 F 75 20 108/57 L 94 L 07/29/19 06:03 99.0 F 68 24 H 118/69 96 07/29/19 04:03 95 Weight Admit Weight 197 lb 6.4 oz Weight 193 lb 12.8 oz I&O: 07/28/19 07/29/19 07/30/19 06:59 06:59 06:59 Intake Total 1090 1490 Output Total 1575 1275 Balance -485 215 Result Diagrams: 07/27/19 04:41 07/27/19 04:42 Hospitalist ROS - Medication Medications: Active Medications Generic Name Dose Route Start Last Admin Trade Name Freq PRN Reason Stop Dose Admin Acetaminophen 650 mg 07/23/19 17:16 07/26/19 00:42 Tylenol PO 650 mg Q4H PRN Administration Headache/Fever/Mild Pain (1-3) Albuterol Sulfate 2 puff 07/23/19 19:00 07/29/19 08:28 Proventil Hfa INH 2 puff [id number] MARLYS Administration Ascorbic Acid 1,000 mg 07/24/19 09:00 07/29/19 08:19 Vitamin C PO 1,000 mg DAILY MARLYS Administration Aspirin 81 mg 07/24/19 09:00 07/29/19 08:18 Ecotrin PO 81 mg DAILY MARLYS Administration Atorvastatin Calcium 40 mg 07/24/19 09:00 07/29/19 08:19 Lipitor PO 40 mg DAILY MARLYS Administration Enoxaparin Sodium 90 mg 07/23/19 21:00 07/29/19 08:17 Lovenox SC 90 mg 0900,2100 MARLYS Administration Famotidine 20 mg 07/23/19 21:00 07/29/19 08:18 Pepcid PO 20 mg BID MARLYS Administration Guaifenesin 600 mg 07/24/19 09:00 07/29/19 08:19 Mucinex PO 600 mg Q12HR MARLYS Administration Hydrochlorothiazide 25 mg 07/25/19 09:00 07/29/19 08:18 Hydrochlorothiazide PO 25 mg DAILY MARLYS Administration Non-Formulary Medication 1 250 mls @ 250 mls/hr 07/27/19 13:00 07/28/19 12:48 each/ Sodium Chloride IV 07/30/19 13:59 250 mls 1300 MARLYS Administration Metoprolol Tartrate 100 mg 07/24/19 21:00 07/28/19 19:44 Lopressor PO 100 mg HS MARLYS Administration Metoprolol Tartrate 50 mg 07/25/19 09:00 07/29/19 08:19 Lopressor PO 50 mg QAM MARLYS Administration Mometasone Furoate/Formoterol Fumar 1 puff 07/23/19 18:30 07/29/19 05:59 Dulera 100 Mcg/5 Mcg Inhaler INH 1 puff BID-RT MARLYS Administration Montelukast Sodium 10 mg 07/25/19 09:00 07/29/19 08:19 Singulair PO 10 mg DAILY MARLYS Administration Sodium Chloride 10 ml 07/24/19 21:00 07/29/19 08:19 Flush - Normal Saline IVF 10 ml Q12HR MARLYS Administration Sodium Chloride 10 ml 07/24/19 12:37 07/25/19 17:45 Flush - Normal Saline IVF 10 ml PRN PRN Administration Saline Flush Valsartan 160 mg 07/25/19 09:00 07/29/19 08:19 Diovan PO 160 mg DAILY MARLYS Administration Vitamin B Complex/Vit C/Folic Acid 1 tab 07/24/19 09:00 07/29/19 08:18 Nephro-Samina Tablet PO 1 tab DAILY MARLYS Administration - Exam General Appearance: awake alert ENT: normocephalic atraumatic Neck: supple Heart: RRR Respiratory: normal chest expansion, no tachypnea Neurological: cranial nerve grossly intact, no focal deficits Hosp A/P - Plan (1) Pneumonia due to COVID-19 virus Code(s): U07.1 - COVID-19; J12.89 - OTHER VIRAL PNEUMONIA Status: Acute (2) Acute on chronic respiratory failure with hypoxemia Code(s): J96.21 - ACUTE AND CHRONIC RESPIRATORY FAILURE WITH HYPOXIA Status: Acute (3) Asthma Code(s): J45.909 - UNSPECIFIED ASTHMA, UNCOMPLICATED Status: Chronic (4) Hypertension Code(s): I10 - ESSENTIAL (PRIMARY) HYPERTENSION Status: Chronic - Plan * Acute on chronic respiratory failure with hypoxemia- due to COVID positive pneumonia * He has been started on Remdesivir day 4. The patient is feeling better. * D-dimer levels and C-reactive protein are improving. The patient still requiring oxygen. ID following. * Continue Lovenox * HTN-blood pressure is stable- continue Losartan and Metoprolol
[2019-07-29] MEDS: Metoprolol Tartrate 100 MG TAB PO SCH (22:20)
[2019-07-30] MEDS: Albuterol 200 PUFF (6.7GM INHALER) INH SCH ×5 (04:18→18:32)
[2019-07-30] MEDS: Mometasone 100 MCG/Formoterol 5 MCG 120 PUFF INHALER INH SCH ×2 (04:38→18:31)
[2019-07-30 05:12] LABS: Platelet Count 432 thou/uL (130-400)
[2019-07-30 05:30] LABS: Calc. Creatinine Clearance 145 mL/min (70-130); Estimated GFR-MDRD Greater than 90
[2019-07-30 05:33] LABS: ALT (SGPT) 107 U/L (8-55); AST (SGOT) 87 U/L (5-34); Alkaline Phosphatase 64 U/L (40-110); Bilirubin, Direct 0.3 mg/dL (0.1-0.3); Bilirubin, Total 0.6 mg/dL (0.2-1.2); Protein, Total 7.3 g/dL (6.0-8.3)
[2019-07-30] MEDS: Enoxaparin Sodium 100 MG/ML SYRINGE SC SCH (09:10)
[2019-07-30] MEDS: Ascorbic Acid 500 mg Chewable Tablet PO SCH (09:11)
[2019-07-30] MEDS: Valsartan 80 MG TAB PO SCH (09:11)
[2019-07-30] MEDS: Metoprolol Tartrate 50 MG TAB PO SCH (09:11)
[2019-07-30] MEDS: Atorvastatin Calcium 40 MG TAB PO SCH (09:12)
[2019-07-30] MEDS: Folic Acid/Vit B Comp W-C PO SCH (09:12)
[2019-07-30] MEDS: Famotidine 20 MG TAB PO SCH (09:12)
[2019-07-30] MEDS: guaiFENesin ER 600 MG TAB PO SCH (09:12)
[2019-07-30] MEDS: Montelukast Sodium 10 mg Tablet PO SCH (09:12)
[2019-07-30] MEDS: Aspirin 81 mg Enteric Coated Tablet PO SCH (09:12)
[2019-07-30] MEDS: Hydrochlorothiazide 25 MG TAB PO SCH (09:12)
--- NOTE | 2019-07-30 12:45 | PDOC.HOSPP ---
- Subjective Encounter Date: 07/30/19 Subjective: Feels better. Still complaining of some cough. - Objective Vital Signs & Weight: Vital Signs (12 hours) Temp Pulse Resp BP BP Pulse Ox 07/30/19 11:49 97.9 F 80 18 134/65 95 07/30/19 09:00 98.6 F 78 24 H 111/65 94 L 07/30/19 05:00 97.7 F 63 18 108/79 94 L 07/30/19 04:38 61 18 94 L 07/30/19 04:02 94 L Weight Admit Weight 197 lb 6.4 oz Weight 193 lb 12.8 oz I&O: 07/29/19 07/30/19 07/31/19 06:59 06:59 06:59 Intake Total 1490 1000 Output Total 1275 1600 200 Balance 215 -600 -200 Result Diagrams: 07/30/19 04:31 07/30/19 04:31 Hospitalist ROS - Medication Medications: Active Medications Generic Name Dose Route Start Last Admin Trade Name Freq PRN Reason Stop Dose Admin Acetaminophen 650 mg 07/23/19 17:16 07/26/19 00:42 Tylenol PO 650 mg Q4H PRN Administration Headache/Fever/Mild Pain (1-3) Albuterol Sulfate 2 puff 07/23/19 19:00 07/30/19 09:09 Proventil Hfa INH 2 puff [id number] MARLYS Administration Ascorbic Acid 1,000 mg 07/24/19 09:00 07/30/19 09:11 Vitamin C PO 1,000 mg DAILY MARLYS Administration Aspirin 81 mg 07/24/19 09:00 07/30/19 09:12 Ecotrin PO 81 mg DAILY MARLYS Administration Atorvastatin Calcium 40 mg 07/24/19 09:00 07/30/19 09:12 Lipitor PO 40 mg DAILY MARLYS Administration Enoxaparin Sodium 90 mg 07/23/19 21:00 07/30/19 09:10 Lovenox SC 90 mg 09,2100 MARLYS Administration Famotidine 20 mg 07/23/19 21:00 07/30/19 09:12 Pepcid PO 20 mg BID MARLYS Administration Guaifenesin 600 mg 07/24/19 09:00 07/30/19 09:12 Mucinex PO 600 mg Q12HR MARLYS Administration Hydrochlorothiazide 25 mg 07/25/19 09:00 07/30/19 09:12 Hydrochlorothiazide PO 25 mg DAILY MARLYS Administration Non-Formulary Medication 1 250 mls @ 250 mls/hr 07/27/19 13:00 07/29/19 13:58 each/ Sodium Chloride IV 07/30/19 13:59 250 mls 1300 MARLYS Administration Metoprolol Tartrate 100 mg 07/24/19 21:00 07/29/19 22:20 Lopressor PO 100 mg HS MARLYS Administration Metoprolol Tartrate 50 mg 07/25/19 09:00 07/30/19 09:11 Lopressor PO 50 mg QAM MARLYS Administration Mometasone Furoate/Formoterol Fumar 1 puff 07/23/19 18:30 07/30/19 04:38 Dulera 100 Mcg/5 Mcg Inhaler INH 1 puff BID-RT MARLYS Administration Montelukast Sodium 10 mg 07/25/19 09:00 07/30/19 09:12 Singulair PO 10 mg DAILY MARLYS Administration Sodium Chloride 10 ml 07/24/19 21:00 07/30/19 09:10 Flush - Normal Saline IVF 10 ml Q12HR MARLYS Administration Sodium Chloride 10 ml 07/24/19 12:37 07/25/19 17:45 Flush - Normal Saline IVF 10 ml PRN PRN Administration Saline Flush Valsartan 160 mg 07/25/19 09:00 07/30/19 09:11 Diovan PO 160 mg DAILY MARLYS Administration Vitamin B Complex/Vit C/Folic Acid 1 tab 07/24/19 09:00 07/30/19 09:12 Nephro-Samina Tablet PO 1 tab DAILY MARLYS Administration - Exam General Appearance: awake alert ENT: normocephalic atraumatic Neck: supple Heart: RRR Respiratory: normal chest expansion, no tachypnea Gastrointestinal: soft Neurological: cranial nerve grossly intact, hemiplegia Hosp A/P - Plan (1) Pneumonia due to COVID-19 virus Code(s): U07.1 - COVID-19; J12.89 - OTHER VIRAL PNEUMONIA Status: Acute (2) Acute on chronic respiratory failure with hypoxemia Code(s): J96.21 - ACUTE AND CHRONIC RESPIRATORY FAILURE WITH HYPOXIA Status: Acute (3) Asthma Code(s): J45.909 - UNSPECIFIED ASTHMA, UNCOMPLICATED Status: Chronic (4) Hypertension Code(s): I10 - ESSENTIAL (PRIMARY) HYPERTENSION Status: Chronic - Plan * Acute on chronic respiratory failure with hypoxemia- due to COVID positive pneumonia. * The patient is feeling better and now on room air. * On Remdesivir. Can be discharged tomorrow after his last dose. * D-dimer levels and C-reactive protein are improving. * Continue Lovenox. * HTN-blood pressure is stable- continue Losartan and Metoprolol.
[2019-07-30] MEDS ORDERED: Non-Formulary Item 1 EACH in Sodium Chloride 0.9% 250 ML 230 ML IV SCH (14:15)
[2019-07-30] MEDS: Non-Formulary Item 1 EACH in Sodium Chloride 0.9% 250 ML 230 ML IV SCH (14:46)
[2019-07-30 15:15] VITALS: BP 103/58; TEMP 97.8
--- NOTE | 2019-07-30 15:24 | PRG ---
DATE OF SERVICE: SUBJECTIVE: Mr. Kincaid is awake, feeling good. No more coughing spells. OBJECTIVE: VITAL SIGNS: He has been afebrile, O2 saturations are 95 on room air, and BP is normal. LUNGS: With fairly clear breath sounds. HEART: S1 and S2, regular rate. ABDOMEN: Soft, not distended. NEUROLOGIC: Moves extremities equally. LABORATORY DATA: His white cell count was 7.9 a few days ago, has not been repeated. Platelets 432. D-dimer 0.99 and CRP 7.46. Ferritin was 537, a little bit higher than previous. ASSESSMENT/DISCUSSION: COVID-19 pneumonia, moderate to severe. This is going to be the 5th day of remdesivir, today is the last day. He probably could go home tomorrow if he is still doing well. Job ID: [id number]
--- NOTE | 2019-07-31 14:49 | PQF ---
CLINICAL DOCUMENTATION IMPROVEMENT CLARIFICATION FORM: ICD-10 Updated PLEASE DO AN ADDENDUM TO THE PROGRESS NOTE WITH ANY DOCUMENTATION UPDATES OR ADDITIONS AND CARRY THROUGH TO DC SUMMARY. THANK YOU. DATE: 07/31/2019 ATTN: Dr. Harris Please exercise your independent, professional judgment in responding to the clarification form. Clinical indicators are provided on the bottom of this form for your review Please check appropriate box(es): [ ] Sepsis present on admission [ ] Sepsis NOT present on admission [ ] Unable to determine Due to: [ ] Severe sepsis present on admission [ ] Severe Sepsis NOT present on admission [ ] Unable to determine with acute organ dysfunction of: [ ] Localized infection without sepsis [ ] Other diagnosis [ ] Unable to determine For continuity of documentation, please document condition throughout progress notes and discharge summary. Thank You. CLINICAL INDICATORS - SIGNS / SYMPTOMS / LABS / RESULTS AND LOCATION IN MR H&P 07/22: VS: BP 133/76, HR 86, resp. 25, Temp. 99.2 and O2 sat 93% on 3L 07/23 (Billy) Acute on chronic respiratory failure with hypoxemia - due to COVID positive pneumonia. LABS: 07/23 Neutrophils 78 Band Neuts 12 C Reactive Protein 11.33 RISKS: H&P 07/22: PMH Asthma, HTN. 07/23 (Billy) Acute on chronic respiratory failure with hypoxemia - due to COVID positive pneumonia. TREATMENT: Order 07/22: Resp. to keep sats 90% continuous Order 07/22-07/25: Rocephin 1 gm IV; IV Zithromax 500mg ID Consult 07/25 Order 07/25 -07/29: Remdesivir IV Thank you, Ronit (This form is maintained as a part of the permanent medical record) 2014 [employer]. All Rights Reserved Ronit Marino, RN, DREW [email or web address]
== END 2019-07-30 19:37 | disposition home or self-care (01) | DRG 177 ==
LOC: 2SW 14:41
PROVIDERS: ADMIT Student in an Organized Health Care Education/Training Program; ATTEND Student in an Organized Health Care Education/Training Program
PROC: 8E0ZXY6 Isolation (ICD-10-PCS; principal; 2019-07-23)
DX: U07.1 COVID-19 (principal); J12.89 Other viral pneumonia; J96.21 Acute and chronic respiratory failure with hypoxia; I10 Essential (primary) hypertension; J45.909 Unspecified asthma, uncomplicated; E78.00 Pure hypercholesterolemia, unspecified; Z79.51 Long term (current) use of inhaled steroids
CPT/HCPCS: 36415; 71045; 80048; 80076; 82553; 82565; 82728; 82805; 84484; 85014; 85018; 85025; 85049; 85379; 86140; 87635; 94664; J0456; J0696; J1650; J3490; J7050; U0003